=== PATIENT | female | born 1960 | race American Indian/Alaskan Native ===

== ENCOUNTER 2017-04-15 10:39 | Outpatient (CLI) | payer MEDICARE ==
--- NOTE | 2017-04-15 13:14 | Ultrasound Report ---
Bilateral digital diagnostic mammogram with CAD and bilateral targeted breast ultrasound. History: Palpable abnormalities in each breast. Findings: The breasts are fatty replaced with no evidence of focal mass or architectural distortion. No suspicious microcalcifications are seen. The inner half of the right breast was examined by ultrasound revealing no focal findings. Areas of palpable abnormalities in the lateral and medial left breast were examined, again without focal findings. Impression: No suspicious imaging findings. BI-RADS code: 1. Recommendation: Annual screening.
== END 2017-04-15 10:40 | disposition home or self-care (01) ==
LOC: SPVWC 10:39
PROVIDERS: ATTEND Physician Assistant
DX: D49.3 Neoplasm of unspecified behavior of breast (principal); N63 Unspecified lump in breast
CPT/HCPCS: 76642; G0204; 77066

== ENCOUNTER 2019-04-13 14:04 | Outpatient (CLI) | payer MEDICARE ==
--- NOTE | 2019-04-14 09:53 | Mammography Report ---
BILATERAL DIGITAL SCREENING MAMMOGRAM with CAD: 04/13/19 14:04:00 CLINICAL: Routine screening. COMPARISON:04/15/17 FINDINGS: The breasts are almost entirely fatty. No mass, architectural distortion or suspicious calcifications. IMPRESSION: No mammographic evidence of malignancy. BI-RADS CATEGORY: 1 - - Negative RECOMMENDATION: Routine mammographic screening in one year. COMMENT: Patient follow-up letters are generated by our [employer] application.
== END 2019-04-13 14:05 | disposition home or self-care (01) ==
LOC: SPVWC 14:04
PROVIDERS: ATTEND Internal Medicine
DX: Z12.31 Encounter for screening mammogram for malignant neoplasm of breast (principal)
CPT/HCPCS: 77067